=== PATIENT | female | born 1975 | race African-American/Black ===

== ENCOUNTER 2021-12-20 19:44 | Emergency (ER) | payer MEDICAID ==
[~2021-12-20] VITALS: Ht 162.6 cm; Wt 67.0 kg
[2021-12-20 20:04] VITALS: BP 108/75
== END 2021-12-20 21:00 | disposition left against medical advice (07) ==
LOC: ER 19:44
DX: Z53.21 Procedure and treatment not carried out due to patient leaving prior to being seen by health care provider (principal)
CPT/HCPCS: 93005